=== PATIENT | female | born 1970 | race Caucasian/White ===

== ENCOUNTER 2024-12-28 18:54 | Day surgery (SDC) | payer BC ==
[~2024-12-28] VITALS: Ht 157.5 cm; Wt 59.0 kg
[2024-12-28] MEDS: GENTAMICIN SULF 80 MG/2 ML VIAL As Ordered ONE (18:28)
[2024-12-28] MEDS: dexAMETHasone 4 MG/ML 1 ML VIAL As Ordered ONE (18:28)
[2024-12-28] MEDS ORDERED: LIDOCAINE 2% 100 MG/5 ML SDV (FOR ANES.) As Ordered ONE (19:17)
[2024-12-28] MEDS ORDERED: ROCURONIUM BROMIDE 50MG/5ML VIAL As Ordered ONE (19:18)
[2024-12-28] MEDS ORDERED: KETOROLAC 30 MG/ML 1 ML VIAL As Ordered ONE (19:21)
[2024-12-28] MEDS ORDERED: ONDANSETRON 4MG 2ML VIAL As Ordered ONE (19:21)
[2024-12-28] MEDS ORDERED: MIDAZOLAM INJ 2 MG/2 ML VIAL As Ordered ONE (19:30)
[2024-12-28] MEDS ORDERED: HYDROMORPHONE HCL 0.5 MG/0.5 ML SYRINGE IV PRN (20:10)
[2024-12-28] MEDS ORDERED: MORPHINE 2 MG/ML 1 ML VIAL IV PRN (20:10)
[2024-12-28] MEDS: LIDOCAINE 2% MDV 20 ML VIAL As Ordered ONE (20:19)
[2024-12-28 20:29] VITALS: TEMP 97.9
[2024-12-28 20:55] VITALS: BP 147/73; O2SAT 98
== END 2024-12-28 21:08 | disposition home or self-care (01) ==
LOC: M OPP 18:54
PROVIDERS: ATTEND Podiatrist
DX: S91.342A Puncture wound with foreign body, left foot, initial encounter (principal); I96 Gangrene, not elsewhere classified; X58.XXXA Exposure to other specified factors, initial encounter; L08.9 Local infection of the skin and subcutaneous tissue, unspecified; B96.89 Other specified bacterial agents as the cause of diseases classified elsewhere; I10 Essential (primary) hypertension
CPT/HCPCS: 11043; 73630; 81025; 87070; 87075; 87077; 87116; 87205; 87206; J0665; J1100; J1580; J1885; J2250; J2405; J3010

== ENCOUNTER → 2025-04-22 | Outpatient (CLI) | payer BC ==
[~2025-04-22] MED LIST: ASPI81TA26 PO; ATOR40TA75 PO; ESTR25TD TD; EZET10TA57 PO; METO1TAB32 PO; PROG1CAP9 PO
[2025-04-22 11:05] LABS: BASO # 0.0 10^3/uL (0.0-0.2); BASO % 0.6 % (0.0-1.0); EOS # 0.2 10^3/uL (0.0-0.5); EOS % 2.6 % (0.0-3.0); LYMPH # 1.7 10^3/uL (1.5-5.0); LYMPH % 25.2 % (24.0-44.0); MONO # 0.6 10^3/uL (0.0-0.8); MONO % 8.9 % (2.0-8.0); NEUTROPHILS # 4.3 10^3/uL (1.5-8.5); NEUTROPHILS % 62.3 % (36.0-66.0); PLATELET COUNT, AUTOMATED 317 10^3/uL (150-450)
[2025-04-22 11:26] LABS: CALCIUM LEVEL 9.2 MG/DL (8.5-10.1); CARBON DIOXIDE LEVEL 28 MMOL/L (20-31); CHLORIDE LEVEL 104 MMOL/L (98-107); CREATININE FOR GFR 0.73 MG/DL (0.55-1.30); GLOMERULAR FILTRATION RATE > 90.0 (>51); POTASSIUM SERUM 4.2 MMOL/L (3.5-5.1); SODIUM LEVEL 141 MMOL/L (136-145)
== END ==
LOC: M LAB 09:58
PROVIDERS: ATTEND Podiatrist
DX: M20.21 Hallux rigidus, right foot (principal); M79.671 Pain in right foot

== ENCOUNTER 2025-05-02 09:52 | Day surgery (SDC) | payer BC ==
[~2025-05-02] VITALS: Ht 157.5 cm; Wt 62.7 kg
[~2025-05-02 09:52] MED LIST changes: +KETOROLAC 30 MG/ML 1 ML VIAL As Ordered ONE; +LIDOCAINE 2% 100 MG/5 ML SDV (FOR ANES.) As Ordered ONE; +MIDAZOLAM INJ 2 MG/2 ML VIAL As Ordered ONE; +ONDANSETRON 4MG/2ML VIAL As Ordered ONE; +dexmedeTOMIDine (4 MCG/ML) 200 MCG/50 ML BTL As Ordered ONE
[2025-05-02] MEDS ORDERED: LR 1,000 ML IV SCH (11:10)
[2025-05-02] MEDS: ceFAZolin SOD 2 GM IV ONCE IV ONE (12:52)
[2025-05-02] MEDS: LIDOCAINE 2% MDV 20 ML VIAL As Ordered ONE (13:02)
[2025-05-02] MEDS: GENTAMICIN SULF 80 MG/2 ML VIAL As Ordered ONE (13:07)
[2025-05-02] MEDS ORDERED: ACETAMINOPHEN 1000MG/100ML IV BAG As Ordered ONE (13:28)
[2025-05-02] MEDS: dexAMETHasone 4 MG/ML 1 ML VIAL As Ordered ONE (13:37)
[2025-05-02 14:40] VITALS: BP 169/73; TEMP 97.2; O2SAT 100
== END 2025-05-02 14:45 | disposition home or self-care (01) ==
LOC: M SDC 09:52
PROVIDERS: ATTEND Podiatrist
DX: M20.5X1 Other deformities of toe(s) (acquired), right foot (principal); I10 Essential (primary) hypertension; E78.00 Pure hypercholesterolemia, unspecified; Z79.899 Other long term (current) drug therapy; Z79.82 Long term (current) use of aspirin
CPT/HCPCS: 28289; 73630; J0131; J0665; J0688; J1100; J1580; J1885; J2250; J2405; J3010